=== PATIENT | female | born 1990 | race Caucasian/White ===

== ENCOUNTER 2018-08-19 15:13 | Outpatient (CLI) | payer OTHER ==
--- NOTE | 2018-08-19 16:08 | RAD ---
LUMBAR SPINE TWO VIEWS: 08/19/18 HISTORY: Disability evaluation. COMPARISON: 01/23/16 study. There is a left sided unilateral pedicle screws with vertical connecting chyna at the L4, L5 and S1 lev els. Markers of disc implants are within the confines of the disc level. There is left sided laminoto my changes also seen at these levels. IMPRESSION: Stable postop changes of the spine. POS: [facility]
--- NOTE | 2018-08-19 16:10 | RAD ---
TWO VIEWS RIGHT HAND: 08/19/18 HISTORY: Disability exam. AP and lateral views right hand obtained. Two views right hand demonstrate no evidence of right hand fractures, subluxations or bony lesions. N o degenerative changes seen. No lytic or sclerotic bony lesions seen. Radiograph of the right hand is normal. IMPRESSION: Normal two views right hand with no significant evidence of osseous lesions seen. POS: H
== END 2018-08-19 15:14 | disposition home or self-care (01) ==
LOC: BICRAD 15:13
PROVIDERS: ATTEND Internal Medicine
DX: Z02.71 Encounter for disability determination (principal); Z98.890 Other specified postprocedural states
CPT/HCPCS: 72100

== ENCOUNTER 2019-05-30 07:12 | Day surgery (SDC) | payer BC ==
[2019-05-27 15:34] VITALS: BMI 38.4
--- NOTE | 2019-05-30 09:14 | RAD ---
Myelogram of Lumbar spine CLINICAL HISTORY: Disc degeneration PROCEDURE: Informed consent was obtained. [employer] imaging was performed. Patient was placed in a prone position and the skin of the low back was prepped and draped in a standard sterile fashion. Topical anesthesia was achieved with buffered 1% lidocaine. 22-gauge spinal needle was then advanced uneventf ully into the thecal sac from a posterior para midline approach at the left L2-3 level. 9 cc of radiopaque contrast was instilled under low pressure into the thecal sac, upon return of clear colorl ess CSF the needle hub. Imaging was stored for documentation. Needle was removed. Patient tolerated the procedure well, without complication evident. Patient was then transferred to CT to undergo subsequent CT myelogram imaging. Reference separate padilla cisneros(s) for additional details. FINDINGS: Intraoperative imaging reveals a needle overlying the lumbar spinal canal, with subsequent instillation of radiopaque contrast within the thecal sac. Fluoroscopy data:0.2 minutes, 32 mcg/sq m IMPRESSION: Technically successful myelogram, as above.
--- NOTE | 2019-05-30 09:30 | CT ---
CT LUMBAR SPINE MYELOGRAM: HISTORY: Disc degeneration. COMPARISON: 07/11/2016 FINDINGS: Incidental note of punctate, nonobstructing right nephrolithiasis. The conus medullaris is normal in morphology and terminates at the L1-2 level. Left pedicle screws of L4, L5 and S1 are present with interval development of perihardware lucency ab out the left S1 pedicle screw. Pedicle screws are conjoined by vertical rods. Disc space prostheses are present at L4-5 and L5-S1. L1-2: No significant stenosis. L2-3: No significant stenosis. L3-4: No significant stenosis. L4-5: Broad based disc osteophyte, bilateral facet hypertrophy and evidence of posterior decompressio n. Mild effacement of the thecal sac and crowding of the bilateral traversing L5 nerve roots. Mild bilateral neural foraminal narrowing due to osseous hypertrophy. L5-S1: Osteophyte ridge mildly effaces the ventral thecal sac without significant central canal steno sis. Mild bilateral neural foraminal narrowing due to osseous hypertrophy. Stable bone island of the right ilium. IMPRESSION: Postoperative lumbosacral spine with associated degenerative changes, although no significant central canal stenosis. Osseous hypertrophy results in mild osseous narrowing of the neural foramina at L4-5 and L5-S1 levels. Transcribed Date/Time: 05/30/2019 9:52 AM
== END 2019-05-30 09:45 | disposition home or self-care (01) ==
LOC: RAD 07:12
PROVIDERS: ATTEND Nurse Practitioner Family
PROC: B02B1ZZ Computerized Tomography (CT Scan) of Spinal Cord using Low Osmolar Contrast (ICD-10-PCS; principal; 2019-05-30)
DX: M51.36 Other intervertebral disc degeneration, lumbar region (principal); Z88.8 Allergy status to other drugs, medicaments and biological substances
CPT/HCPCS: 36415; 62304; 72131; 84702